=== PATIENT | female | born 1995 | race Caucasian/White ===

== ENCOUNTER 2020-09-10 14:24 | Emergency (ER) | payer BC ==
--- NOTE | 2020-09-10 16:16 | EDPHYS ---
Physician Documentation [facility] Name: Chris August Age: 24 yrs Sex: Female : 1995 Arrival Date: 09/10/2020 Time: 14:26 Bed Waiting Private MD: UNRULY Physician Historical: - Allergies: 09/10 14:28 No Known Allergies; sv - PMHx: 14:28 None; sv - PSHx: 14:28 Ear Tubes; sv - Immunization history:: Adult Immunizations up to date. - Social history:: Smoking status: Patient denies any tobacco usage or history of. - Family history:: Father has/had TN at age 35.. Exam: 15:49 ECG was reviewed by the Attending Physician. kdr Vital Signs: 14:29 BP 131 / 79; Pulse 87; Resp 16; Temp 98.1(TE); Pulse Ox 99% on R/A; Weight 76.2 kg; sv Height 5 ft. 10 in. (177.80 cm); Pain 6/10; 14:29 Body Mass Index 24.10 (76.20 kg, 177.80 cm) sv MDM: 09/10 14:29 Order name: EKG; Complete Time: 14:29 sv 09/10 14:29 Order name: EKG - Nurse/Tech sv EC:49 Rate is 95 beats/min. Rhythm is regular, Normal Sinus Rhythm with No ectopy. QRS [place] kdr is Normal. IA interval is normal. QRS interval is normal. QT interval is normal. Clinical impression: Normal ECG. Administered Medications: No medications were administered Disposition: 09/10/20 16:15 Patient left the facility before being seen by provider. - Patient left due to (see nurse's notes). Signatures: Zoe Arora RN RN sv Dorian Knight MD MD kdr Ana Rosa Motley RN RN iw Corrections: (The following items were deleted from the chart) 16:15 16:15 09/10/2020 16:15 Patient left the facility before being seen by provider. Reason iw stated they are leaving due to (see nurse's notes). iw
--- NOTE | 2020-09-10 16:16 | ER ---
Nurse's Notes [facility] Name: Chris August Age: 24 yrs Sex: Female : 1995 Arrival Date: 09/10/2020 Time: 14:26 Bed Waiting Private MD: Diagnosis: Presentation: 09/10 14:27 Chief complaint: Patient states: midsternal chest pain with radiation to the left arm sv started 2 hours ago. Coronavirus screen: Client denies travel out of the [place] in the last 14 days. At this time, the client does not indicate any symptoms associated with coronavirus-19. Ebola Screen: No symptoms or risks identified at this time. Risk Assessment: Do you want to hurt yourself or someone else? Patient reports no desire to harm self or others. Onset of symptoms was September 10, 2020. 14:27 Method Of Arrival: Ambulatory sv 14:27 Acuity: LANRE 3 sv 14:29 Initial Sepsis Screen: Does the patient meet any 2 criteria? No. Patient's initial sv sepsis screen is negative. Does the patient have a suspected source of infection? No. Patient's initial sepsis screen is negative. Triage Assessment: 14:29 General: Appears in no apparent distress. uncomfortable, slender, well developed, sv Behavior is calm, cooperative, appropriate for age. Pain: Complains of pain in anterior aspect of left upper chest and left breast Pain radiates to left arm Pain currently is 6 out of 10 on a pain scale. Neuro: Level of Consciousness is awake, alert, obeys commands, Oriented to person, place, time, situation, Moves all extremities. Full function Gait is steady, Speech is normal. Respiratory: Respiratory effort is even, unlabored. Historical: - Allergies: 14:28 No Known Allergies; sv - PMHx: 14:28 None; sv - PSHx: 14:28 Ear Tubes; sv - Immunization history:: Adult Immunizations up to date. - Social history:: Smoking status: Patient denies any tobacco usage or history of. - Family history:: Father has/had NM at age 35.. Assessment: 14:29 Reassessment: Received VO from Dr Knight for EKG order. sv 16:14 Reassessment: called pt cell phone, states she was feeling fine and left to go home. iw Vital Signs: 14:29 BP 131 / 79; Pulse 87; Resp 16; Temp 98.1(TE); Pulse Ox 99% on R/A; Weight 76.2 kg; sv Height 5 ft. 10 in. (177.80 cm); Pain 6/10; 14:29 Body Mass Index 24.10 (76.20 kg, 177.80 cm) sv ED Course: 14:26 Patient arrived in ED. ag5 14:28 Triage completed. sv 14:29 Arm band placed on. sv 14:33 EKG completed in triage. Results shown to MD. sv 15:50 Calixto Castro PA is PHCP. cp 15:50 Dorian Knight MD is Attending Physician. cp 15:53 Patient's name was called from ER lobby. No response. sv Administered Medications: No medications were administered Outcome: 16:15 Patient left the ED. iw Signatures: Zoe Arora RN RN Ana Rosa Motley RN RN Calixto Catsro PA PA cp Gaskin, Ajare ag5 Corrections: (The following items were deleted from the chart) 14:33 14:29 76.2 kg; Height 5 ft. 10 in.; BMI: 24.1; Pain 6/10; sv sv 14:35 14:29 Pulse 87bpm; Resp 16bpm; Pulse Ox 99%; Temp 98.1F; 76.2 kg; Height 5 ft. 10 in.; sv BMI: 24.1; Pain 6/10; sv
[2020-09-10 16:19] VITALS: BP 131/79; TEMP 98.1; O2SAT 99
== END 2020-09-10 16:15 | disposition left against medical advice (07) ==
LOC: ER 14:24
DX: Z02.9 Encounter for administrative examinations, unspecified (principal)
CPT/HCPCS: 93005; 99281